=== PATIENT | male | born 1975 | race Caucasian/White ===

== ENCOUNTER 2016-06-24 14:38 | Emergency (ER) | payer MEDICARE | END 2016-06-24 16:20 | disposition home or self-care (01) | LOC: ER 14:38 | DX: R07.81 Pleurodynia (principal); R07.89 Other chest pain; K21.9 Gastro-esophageal reflux disease without esophagitis; F17.210 Nicotine dependence, cigarettes, uncomplicated | CPT/HCPCS: 36415; 96374; J1885 ==